=== PATIENT | female | born 1975 | race Caucasian/White ===

== ENCOUNTER → 2017-05-01 | Day surgery (SDC) | payer OTHER ==
[~2017-05-01] MED LIST: ATENOLOL25 MG PO; OSTERA TABLET1 EACH PO
== END | disposition home or self-care (01) ==
LOC: ADM 04-26 08:15 → CIR.AMB 07:00
DX: N84.0 Polyp of corpus uteri (principal)

== ENCOUNTER 2019-10-24 08:29 | Inpatient (IN) | payer OTHER ==
[~2019-10-24] VITALS: Ht 167.6 cm; Wt 99.8 kg
[2019-10-26] MEDS ORDERED: FEOSOL325 MG PO (09:52)
[2019-10-26] MEDS ORDERED: IRO PLEX PO (09:53)
[2019-10-26] MEDS ORDERED: TOPROL XL25 M1 (09:54)
== END 2019-10-31 14:10 | DRG 743 ==
LOC: O/R 10-28 08:30 → SURH 10-28 08:30 → OB/GYN 10-28 10:30 → O/R 10-28 10:30 → SURH 10-28 12:45 → OB/GYN 10-28 19:46
PROVIDERS: ADMIT Obstetrics & Gynecology; ATTEND Obstetrics & Gynecology
PROC: 0UT70ZZ Resection of Bilateral Fallopian Tubes, Open Approach (ICD-10-PCS; 2019-10-28)
PROC: 0UT90ZZ Resection of Uterus, Open Approach (ICD-10-PCS; principal; 2019-10-28 12:45)
DX: D25.2 Subserosal leiomyoma of uterus (principal); N72 Inflammatory disease of cervix uteri